=== PATIENT | female | born 1995 | race Caucasian/White ===

== ENCOUNTER 2016-08-16 18:18 | Emergency (ER) | payer OTHER ==
[2016-08-16] MEDS ORDERED: methylPREDNISolone SOD SUCCI 125 MG/2 ML VIAL IV STA (18:26)
[2016-08-16] MEDS ORDERED: FAMOTIDINE 20 MG/2 ML VIAL IV STA (18:26)
[2016-08-16] MEDS ORDERED: diphenhydrAMINE 50 MG/ML 1 ML VIAL IVP STA (18:26)
[2016-08-16] MEDS ORDERED: EPINEPHrine 1 MG/ML 1 ML AMP IM STA (19:55)
--- NOTE | 2016-08-16 20:13 | ED ---
General Adult HPI - General Chief complaint: Allergic Reaction Stated complaint: POSS ALLERGIC REACTION Time Seen by Provider: 08/16/16 18:22 Source: patient, family, RN notes reviewed Mode of arrival: ambulatory Limitations: no limitations - History of Present Illness Initial comments: Patient 20-year-old female who presents emergency room today with her mother, the chief complaint of a possible ALLERGIC reaction. Mother does admit that she does have ALLERGY to mold. They state that they found mold in the house over the weekend. States that began having a reaction to today prior to arrival. States swelling increasing to the left eye. Does admit to some swelling above the left lip. Patient does admit that she felt that she is having some issues breathing did take some Benadryl and Zyrtec. States breathing symptoms have improved but still having the swelling. She denies any other complaints or associated symptoms. Patient denies any recent fever, chills , shortness of breath, chest pain, back pain, abdominal pain, nausea or vomiting , numbness or tingling, dysuria or hematuria, constipation or diarrhea, headaches or visual changes, or any other complaints. - Related Data Home Medications Medication Instructions Recorded Confirmed Cetirizine HCl [Zyrtec] 10 mg PO HS 08/16/16 08/16/16 Sertraline [Zoloft] 200 mg PO DAILY 08/16/16 08/16/16 clonazePAM [KlonoPIN] 0.25 mg PO HS 08/16/16 08/16/16 Previous Rx's Medication Instructions Recorded EPINEPHrine [Epipen 2-Julien] 0.3 mg IM ONCE PRN #1 ml 08/16/16 Famotidine [Pepcid] 20 mg PO BID #20 tablet 08/16/16 diphenhydrAMINE [Benadryl] 1 - 2 tab PO Q6HR PRN #30 capsule 08/16/16 predniSONE 60 mg PO DAILY 5 Days 08/16/16 Allergies Allergy/AdvReac Type Severity Reaction Status Date / Time mold Allergy Unknown Verified 08/16/16 19:05 Penicillins Allergy Rash/Hives Verified 08/16/16 19:05 POLLEN Allergy Unknown Uncoded 08/16/16 19:05 Review of Systems ROS Statement: Those systems with pertinent positive or pertinent negative responses have been documented in the HPI. ROS Other: All systems not noted in ROS Statement are negative. Past Medical History Past Medical History: Asthma History of Any Multi-Drug Resistant Organisms: None Reported Additional Past Surgical History / Comment(s): lingual frenectomy Past Psychological History: Anxiety, Depression Smoking Status: Never smoker Past Alcohol Use History: None Reported Past Drug Use History: None Reported General Exam - General Exam Comments Initial Comments: General: The patient is awake and alert, in no distress, and does not appear acutely ill. Eye: Pupils are equal, round and reactive to light, extra-ocular movements are intact. No nystagmus. There is normal conjunctiva bilaterally. No signs of icterus. Moderate swelling above the left eye Ears, nose, mouth and throat: There are moist mucous membranes and no oral lesions. No tongue swelling. Mild swelling to the upper lip Neck: The neck is supple, there is no tenderness or JVD. Cardiovascular: There is a regular rate and rhythm. No murmur, rub or gallop is appreciated. Respiratory: Lungs are clear to auscultation, respirations are non-labored, breath sounds are equal. No wheezes, stridor, rales, or rhonchi. Gastrointestinal: Soft, non-distended, non-tender abdomen without masses or organomegaly noted. There is no rebound or guarding present. No CVA tenderness. Bowel sounds are unremarkable. Musculoskeletal: Normal ROM, no tenderness. Strength 5/5. Sensation intact. Pulses equal bilaterally 2+. Neurological: A&O x 3. CN II-XII intact, There are no obvious motor or sensory deficits. Coordination appears grossly intact. Speech is normal. Skin: Skin is warm and dry and no rashes or lesions are noted. Psychiatric: Cooperative, appropriate mood & affect, normal judgment. Limitations: no limitations Course Vital Signs 08/16/16 08/16/16 08/16/16 18:28 19:10 19:19 Temperature 97.9 F 97.9 F Pulse Rate 98 91 75 Respiratory 18 20 20 Rate Blood Pressure 130/72 121/68 114/56 O2 Sat by Pulse 95 99 92 L Oximetry 08/16/16 19:22 Temperature 98.5 F Pulse Rate Respiratory Rate Blood Pressure O2 Sat by Pulse Oximetry - Reevaluation(s) Reevaluation #1: 08/16/16 19:10 patient reexamined at this time and shows improvement after given IV SoluMedrol, Benadryl, Pepcid. Patient will be continued to monitored. 08/16/16 19:50 reexamined at this time and states still feeling comfortable. Patient does admit swelling to the lip seems to be returning. Denies any difficulty breathing. 08/16/16 20:30 Patient reexamined at this time shows improvement after epinephrine. Case discussed in detail with attending physician . Patient will be discharged home continued on steroids, Benadryl, Pepcid for the symptoms. Advised to return if there is any increased swelling. Any tongue swelling or difficulty breathing. Patient family state understanding and agreement. Disposition Clinical Impression: Allergic reaction Disposition: HOME SELF-CARE Condition: Good Instructions: Anaphylaxis (ED) Additional Instructions: Please use Benadryl one to 2 tabs every 6 hours. Please continue steroids and Pepcid as prescribed. Please also family doctor in the next 1-2 days. Please return to emergency room if there is any tongue swelling, increase or worsening of symptoms or shortness of breath as discussed. Please return to emergency room if the symptoms increase or worsen or for any other concerns. Prescriptions: EPINEPHrine [Epipen 2-Julien] 0.3 mg IM ONCE PRN #1 ml PRN Reason: Allergic Reaction Famotidine [Pepcid] 20 mg PO BID #20 tablet diphenhydrAMINE [Benadryl] 1 - 2 tab PO Q6HR PRN #30 capsule PRN Reason: Allergic Reaction predniSONE 60 mg PO DAILY 5 Days Time of Disposition: 20:31
[2016-08-16 20:42] VITALS: RESP 18; TEMP 97.1
[2016-08-16] MEDS ORDERED: SODIUM CHLORIDE 0.9% 1,000 ML IV STA (21:34)
[2016-08-16 22:15] VITALS: BP 116/64; PULSE 106
== END 2016-08-16 22:14 | disposition home or self-care (01) ==
LOC: EC 18:18
DX: T78.40XA Allergy, unspecified, initial encounter (principal); X58.XXXA Exposure to other specified factors, initial encounter; F32.9 Major depressive disorder, single episode, unspecified; F41.9 Anxiety disorder, unspecified; Z79.899 Other long term (current) drug therapy; Z88.0 Allergy status to penicillin; Z91.09 Other allergy status, other than to drugs and biological substances
CPT/HCPCS: 99283; 96374; 96375; 96372; 96361; J0171; J1200; J2930